=== PATIENT | female | born 1945 | race Caucasian/White ===

== ENCOUNTER 2020-03-04 12:02 | Emergency (ER) | payer MEDICARE, OTHER ==
--- NOTE | 2020-03-04 12:46 | ER Document Report ---
ED Medical Screen (RME) - General Chief Complaint: Other Stated Complaint: WEAKNESS Time Seen by Provider: 03/04/20 12:42 Mode of Arrival: Wheelchair Information source: Patient Notes: 74-year-old female presented to ED for complaint of fatigue weakness exhaustion. She states that she was living in [facility] and was in a correction facility when they kicked her out because her son was living with her. She states she was trying to locate here but did not find a place to stay. She states they have been homeless for the last 5 days and she has been walking around and she is just exhausted and cannot do this on a continued basis. I have greeted and performed a rapid initial assessment of this patient. A comprehensive ED assessment and evaluation of the patient, analysis of test results and completion of medical decision making process will be conducted by an additional ED providers. - Related Data Allergies/Adverse Reactions: clozapine [From Clozaril] Allergy (Verified 03/04/20 12:39) Penicillins Allergy (Verified 03/04/20 12:39) Home Medications: ibuprofen Past Medical History - Social History Chew tobacco use (# tins/day): No Frequency of alcohol use: None Drug Abuse: None Physical Exam - Vital signs Vitals: Temp Pulse Resp BP Pulse Ox 98.8 F 93 20 149/65 H 97 03/04/20 12:27 03/04/20 12:27 03/04/20 12:27 03/04/20 12:27 03/04/20 12:27 Course - Vital Signs Vital signs: Temp Pulse Resp BP Pulse Ox 98.8 F 93 20 149/65 H 97 03/04/20 12:40 03/04/20 12:27 03/04/20 12:27 03/04/20 12:27 03/04/20 12:27
[2020-03-04 13:22] LABS: ABSOLUTE EOSINOPHILS # (AUTO) 0.2 10^3/uL (0.0-0.6); ABSOLUTE LYMPHOCYTES (AUTO) 1.5 10^3/uL (0.5-4.7); ABSOLUTE MONOCYTES (AUTO) 0.6 10^3/uL (0.1-1.4); ABSOLUTE NEUT (AUTO) 5.1 10^3/uL (1.7-8.2); BASOPHILS % (AUTO) 0.4 % (0-2); EOSINOPHILS % (AUTO) 3.3 % (0-6); HEMATOCRIT 39.5 % (36.0-47.0); HEMOGLOBIN 13.3 g/dL (12.0-15.5); LYMPHOCYTES % (AUTO) 19.9 % (13-45); MEAN CORPUSCULAR HEMOGLOBIN 30.6 pg (27.0-33.4); MEAN CORPUSCULAR HGB CONC 33.6 g/dL (32.0-36.0); MEAN CORPUSCULAR VOLUME 91 fl (80-97); MONOCYTES % (AUTO) 7.5 % (3-13); PLATELET COUNT 217 10^3/uL (150-450); RED BLOOD COUNT 4.34 10^6/uL (3.72-5.28); RED CELL DISTRIBUTION WIDTH 14.3 % (11.5-14.0); SEGMENTED NEUTROPHILS % (AUTO) 68.9 % (42-78); TOTAL CELLS COUNTED % (AUTO) 100 %; WHITE BLOOD COUNT 7.5 10^3/uL (4.0-10.5)
[2020-03-04 13:40] LABS: APPEARANCE,URINE SLIGHTLY-CLOUDY; BILIRUBIN,URINE SMALL (NEGATIVE); CALCIUM OXALATE CRYSTALS,URINE FEW /HPF; COLOR,URINE AMBER; GLUCOSE, URINE NEGATIVE (NEGATIVE); KETONES,URINE NEGATIVE (NEGATIVE); LEUKOCYTE ESTERASE,URINE SMALL (NEGATIVE); NITRITE,URINE NEGATIVE (NEGATIVE); PROTEIN,URINE 30 mg/dL (NEGATIVE); URINE SPECIFIC GRAVITY 1.026
[2020-03-04 13:41] LABS: ALBUMIN 4.1 g/dL (3.5-5.0); ALKALINE PHOSPHATASE 143 U/L (38-126); ANION GAP 13 (5-19); ASPARTATE AMINO TRANSFERASE 22 U/L (14-36); BILIRUBIN,DIRECT 0.1 mg/dL (0.0-0.4); BILIRUBIN,TOTAL 0.5 mg/dL (0.2-1.3); BLOOD UREA NITROGEN 11 mg/dL (7-20); CALCIUM 9.5 mg/dL (8.4-10.2); CARBON DIOXIDE 24 mmol/L (22-30); CHLORIDE 100 mmol/L (98-107); GLUCOSE 131 mg/dL (75-110); POTASSIUM 3.9 mmol/L (3.6-5.0); TOTAL PROTEIN 6.7 g/dL (6.3-8.2)
--- NOTE | 2020-03-04 14:18 | RADIOLOGY REPORT (SQ) ---
EXAM DESCRIPTION: L SPINE WHOLE IMAGES COMPLETED DATE/TIME: 03/04/2020 1:49 pm REASON FOR STUDY: Back pain COMPARISON: None. NUMBER OF VIEWS: Five views including obliques. TECHNIQUE: AP, lateral, oblique, and sacral radiographic images acquired of the lumbar spine. LIMITATIONS: None. FINDINGS: MINERALIZATION: Normal. SEGMENTATION: Normal. No transitional anatomy. ALIGNMENT: Scoliosis with concavity toward the right. VERTEBRAE: Maintained height. No fracture or worrisome bone lesion. DISCS: Multilevel disc space narrowing with osteophytes. POSTERIOR ELEMENTS: Pedicles and facets are intact. No pars defect or posterior arch defects. Facet arthropathy is present. HARDWARE: None in the spine. PARASPINAL SOFT TISSUES: Normal. PELVIS: Intact as visualized. No fractures or worrisome bone lesions. SI joints intact. OTHER: No other significant finding. IMPRESSION: SPONDYLOSIS WITHOUT BONE LESION OR FRACTURE. TECHNICAL DOCUMENTATION: JOB ID: [id number] 2010 [employer]- All Rights Reserved Reading location - IP/workstation name: [email or web address]
--- NOTE | 2020-03-04 19:24 | ER Document Report ---
Entered by CHUY JEFF SCRIBE 03/04/20 1830 Acting as scribe for:MARA SHANNON DO ED General - General Chief Complaint: Other Stated Complaint: WEAKNESS Time Seen by Provider: 03/04/20 12:42 Mode of Arrival: Wheelchair Information source: Patient Notes: This homeless 74 year old female patient presents to the emergency department today with complaints of "being tired". Patient came here from [place] by way of [place]. Patient reports that her and her son moved from [place] because "there was nothing happening there" although it was found out that she was kicked out of the place she was living because she had her son living with her. They stayed in [place] for a short time and then decided to move because it "got cold" so they "rented a u-haul and drove south". Patient mentions that she had "a good amount of money" when she left [place] but she has now used all of that. She and her son have been living back behind various locations in the area like a [employer] but she states they "kick her out" when they get there in the morning. She has no complaints other than feeling tired. - Related Data Allergies/Adverse Reactions: clozapine [From Clozaril] Allergy (Verified 03/04/20 12:39) Penicillins Allergy (Verified 03/04/20 12:39) Home Medications: ibuprofen Past Medical History - General Information source: Patient - Social History Smoking Status: Former Smoker Cigarette use (# per day): No Chew tobacco use (# tins/day): No Frequency of alcohol use: None Drug Abuse: None Lives with: Homeless Family History: Reviewed & Not Pertinent Patient has homicidal ideation: No - Medical History Medical History: Negative Surgical Hx: Negative Review of Systems - Review of Systems Constitutional: See HPI, Other - fatigue EENT: No symptoms reported Cardiovascular: No symptoms reported Respiratory: No symptoms reported Gastrointestinal: No symptoms reported Genitourinary: No symptoms reported Female Genitourinary: No symptoms reported Musculoskeletal: No symptoms reported Skin: No symptoms reported Hematologic/Lymphatic: No symptoms reported Neurological/Psychological: No symptoms reported -: Yes All other systems reviewed and negative Physical Exam - Vital signs Vitals: Temp Pulse Resp BP Pulse Ox 98.8 F 93 20 149/65 H 97 03/04/20 12:27 03/04/20 12:27 03/04/20 12:27 03/04/20 12:27 03/04/20 12:27 - Notes Notes: Physical Exam: General: Alert, appears well. HEENT: Normocephalic. Atraumatic. PERRL. Extraocular movements intact. Oroph arynx clear. Neck: Supple. Non-tender. Respiratory: No respiratory distress. Clear and equal breath sounds bilaterally. Cardiovascular: Regular rate and rhythm. Abdominal: Normal Inspection. Non-tender. No distension. Normal Bowel Sounds. Back: No gross abnormalities. Extremities: Moves all four extremities. Upper extremities: Normal inspection. Normal ROM. Lower extremities: Normal inspection. No edema. Normal ROM. Neurological: Normal cognition. AAOx4. Normal speech. Psychological: Normal affect. Normal Mood. Skin: Warm. Dry. Normal color. Course - Vital Signs Vital signs: Temp Pulse Resp BP Pulse Ox 98.3 F 87 18 140/66 H 96 03/04/20 23:00 03/04/20 23:00 03/04/20 23:00 03/04/20 23:00 03/04/20 23:00 - Laboratory Result Diagrams: 03/04/20 12:56 03/04/20 12:56 Laboratory results interpreted by me: 03/04/20 03/04/20 03/04/20 12:56 12:56 12:56 RDW 14.3 H Glucose 131 H Alkaline Phosphatase 143 H Urine Protein 30 H Urine Bilirubin SMALL H Urine Urobilinogen 4.0 H Ur Leukocyte Esterase SMALL H Discharge - Discharge Clinical Impression: Homelessness Osteoarthritis Qualifiers: Osteoarthritis location: unspecified site Osteoarthritis type: unspecified Qualified Code(s): M19.90 - Unspecified osteoarthritis, unspecified site Condition: Stable Disposition: HOME, SELF-CARE Instructions: Family Physicians / Practices Additional Instructions: See your doctor or the referral doctor in follow up. Please return here for chest pain, shortness of breath, thoughts of self harm or other problems or concerns. I personally performed the services described in the documentation, reviewed and edited the documentation which was dictated to the scribe in my presence, and it accurately records my words and actions.
[2020-03-05 11:49] VITALS: BP 163/62
== END 2020-03-05 11:49 | disposition home or self-care (01) ==
LOC: ER 12:02
DX: M19.90 Unspecified osteoarthritis, unspecified site (principal); Z59.0 Homelessness; R53.1 Weakness; Z88.0 Allergy status to penicillin; Z88.8 Allergy status to other drugs, medicaments and biological substances; Z87.891 Personal history of nicotine dependence
CPT/HCPCS: 36415; 72110; 80053; 81001; 85025; 99284

== ENCOUNTER 2020-04-21 12:23 | Emergency (ER) | payer OTHER ==
--- NOTE | 2020-04-21 13:40 | ER Document Report ---
ED Medical Screen (RME) - General Chief Complaint: Arm Problem Stated Complaint: ARM SWELLING Time Seen by Provider: 04/21/20 13:32 Mode of Arrival: Ambulatory Information source: Patient Notes: HPI; 74-year-old female presents to the emergency room with right hand and arm swelling that she noticed today. Noticed a scratch to her right hand 2 days ago but is unsure how she sustained it. Patient is homeless. History of right breast cancer with removal of her lymph nodes to her right arm. Patient is right-handed. She denies any pain at this time. Denies any chest pain, shortness of breath, no difficulty breathing. PE: Alert and oriented x3. Lungs: Clear to auscultation without rales, rhonchi, wheezes. Heart: Regular rate rhythm with a grade 2 out of 6 systolic murmur no rubs. Positive right radial pulse. Right hand with a moderate amount of swelling. Right arm with mild swelling noted. I have greeted and performed a rapid initial assessment of this patient. A comprehensive ED assessment and evaluation of the patient, analysis of test results and completion of the medical decision making process will be conducted by additional ED providers. I have specifically instructed the patient or family members with the patient to immediately return to any nursing staff should anything change in the patient's condition or with their chief complaint. TRAVEL OUTSIDE OF THE [place] IN LAST 30 DAYS: No - Related Data Allergies/Adverse Reactions: clozapine [From Clozaril] Allergy (Verified 03/04/20 12:39) Penicillins Allergy (Verified 03/04/20 12:39) Physical Exam - Vital signs Vitals: Temp Pulse Resp BP Pulse Ox 97.5 F 79 20 145/77 H 98 04/21/20 12:45 04/21/20 12:45 04/21/20 12:45 04/21/20 12:45 04/21/20 12:45 Course - Vital Signs Vital signs: Temp Pulse Resp BP Pulse Ox 97.5 F 79 20 145/77 H 98 04/21/20 12:45 04/21/20 12:45 04/21/20 12:45 04/21/20 12:45 04/21/20 12:45
[2020-04-21 14:30] LABS: ALBUMIN 3.7 g/dL (3.5-5.0); ALKALINE PHOSPHATASE 121 U/L (38-126); ANION GAP 7 (5-19); ASPARTATE AMINO TRANSFERASE 31 U/L (14-36); BILIRUBIN,DIRECT 0.1 mg/dL (0.0-0.4); BILIRUBIN,TOTAL 0.7 mg/dL (0.2-1.3); BLOOD UREA NITROGEN 12 mg/dL (7-20); CALCIUM 9.3 mg/dL (8.4-10.2); CARBON DIOXIDE 24 mmol/L (22-30); CHLORIDE 104 mmol/L (98-107); GLUCOSE 90 mg/dL (75-110); POTASSIUM 3.9 mmol/L (3.6-5.0); TOTAL PROTEIN 6.5 g/dL (6.3-8.2)
--- NOTE | 2020-04-21 16:02 | RADIOLOGY REPORT (SQ) ---
EXAM DESCRIPTION: VENOUS UNILATERAL UPPER IMAGES COMPLETED DATE/TIME: 04/21/2020 3:52 pm REASON FOR STUDY: arm swelling COMPARISON: None. TECHNIQUE: Dynamic and static pedraza scale and color images acquired of the right arm venous system. S elected spectral images acquired with additional compression and augmentation maneuvers. The contrala teral subclavian vein and internal jugular vein were also imaged. Images stored on PACS. LIMITATIONS: None. FINDINGS: INTERNAL JUGULAR VEIN: Normal phasicity, compression, augmentation. No visualized echogeni c material on pedraza scale. No defects on color images. Comparison opposite side normal. SUBCLAVIAN VEIN: Normal compression, augmentation. No visualized echogenic material on pedraza scale. No defects on color images. AXILLARY VEIN: Normal compression, augmentation. No visualized echogenic material on pedraza scale. No d efects on color images. BRACHIAL VEIN: Normal compression, augmentation. No visualized echogenic material on pedraza scale. No d efects on color images. BASILIC VEIN: Normal compression, augmentation. No visualized echogenic material on pedraza scale. No de fects on color images. CEPHALIC VEIN: Normal compression, augmentation. No visualized echogenic material on pedraza scale. No d efects on color images. OTHER: No other significant finding. IMPRESSION: NO EVIDENCE DVT OR SVT RIGHT ARM. TECHNICAL DOCUMENTATION: JOB ID: [id number] 2010 [employer]- All Rights Reserved Reading location - IP/workstation name: [email or web address]
--- NOTE | 2020-04-21 19:06 | ER Document Report ---
ED General - General Chief Complaint: Hand Swelling Stated Complaint: ARM SWELLING Time Seen by Provider: 04/21/20 13:32 Mode of Arrival: Ambulatory TRAVEL OUTSIDE OF THE [place] IN LAST 30 DAYS: No - HPI Notes: Patient is a 74-year-old female presents emergency department for evaluation of swelling in her right hand and forearm. She noticed it today [place] She denies any pain or injury. She states she has a scratch on that hand, but she is really unsure as to how she obtained that. She said no fevers or chills. She denies any chest pain or shortness of breath. The patient does have a history of breast cancer with lymph node disse ction on that side, but this was years ago. Patient further notes that she has been off of her psychiatric medications for some time, she is interested in going back on them. She does have a history of schizophrenia. - Related Data Allergies/Adverse Reactions: clozapine [From Clozaril] Allergy (Verified 03/04/20 12:39) Penicillins Allergy (Verified 03/04/20 12:39) Home Medications: Was on in [place]: Wellbutrin 300mg daily. Abilify 30mg daily. Effexor 275mg daily Past Medical History - General Information source: Patient - Social History Smoking Status: Former Smoker - Smoked for 43 years Chew tobacco use (# tins/day): No Frequency of alcohol use: None Drug Abuse: None Family History: Reviewed & Not Pertinent Patient has homicidal ideation: No - Past Medical History Cardiac Medical History: Reports: Hx Hypercholesterolemia, Hx Hypertension Malignancy Medical History: Reports: Hx Breast Cancer Psychiatric Medical History: Reports: Hx Schizophrenia Review of Systems - Review of Systems Constitutional: No symptoms reported EENT: No symptoms reported Cardiovascular: No symptoms reported Respiratory: No symptoms reported Gastrointestinal: No symptoms reported Genitourinary: No symptoms reported Musculoskeletal: See HPI Skin: See HPI Neurological/Psychological: No symptoms reported Physical Exam - Vital signs Vitals: Temp Pulse Resp BP Pulse Ox 97.5 F 79 20 145/77 H 98 04/21/20 12:45 04/21/20 12:45 04/21/20 12:45 04/21/20 12:45 04/21/20 12:45 - Notes Notes: Vital signs reviewed, please refer to chart. Head is normocephalic, atraumatic. Pupils equal round, reactive to light. Neck is supple without meningismus. Heart is regular rate and rhythm. Lungs are clear to auscultation bilaterally. Abdomen is soft, nontender, normoactive bowel sounds throughout. Extremities without cyanosis, clubbing. Posterior calves are nontender. Peripheral pulses are equal. Skin is warm and dry. Patient is awake, alert, neurological exam is nonfocal. Examination of the right upper extremity yields a limited amount of edema noted to the dorsum of the right hand, overlying the wrist, and the distal forearm. There is really no associated calor. There is some superficial linear abrasions noted, but no surrounding induration or erythema consistent with an infection. Capillary refill is brisk, radial pulse 2+. I do not appreciate any axillary lymphadenopathy. No supraclavicular adenopathy noted. Course - Re-evaluation Re-evalutation: 04/21/20 19:04 Patient presents emergency department for evaluation. She was initially seen through triage. She had a Doppler exam which was found to be negative. She had laboratory investigations ordered. CBC and coagulation panel was to be redrawn is a unacceptable lab specimens. Despite a few attempts, we are unable to obtain specimens, none the patient further refused any lab testing. She will sign out AGAINST MEDICAL ADVICE, she does have some chronic medical conditions and we could be missing a more significant medical condition as a result of not having these lab test. She voiced understanding. Doppler was found to be negative. Because of her smoking history, I am inclined to check for a lung mass or other sign of obstructing lesion, but it is likely that this is edema secondary to her history of lymph node dissection. I explained to the patient that, however, if her symptoms persist she should have a repeat Doppler in 1 to 2 weeks. I also strongly encouraged her to follow-up with mental health professionals. I do not feel comfortable writing new prescriptions for such high doses of SSRIs in this patient with a history of schizophrenia. I believe this would be more apically handled by a psychiatrist. She is given community resources. I will also send her on a [facility]. Awaiting chest x-ray. Again otherwise patient will sign out AGAINST MEDICAL ADVICE. 04/21/20 19:30 I am notified by nursing that the patient wants to leave at this point it AGAINST MEDICAL ADVICE. She has to catch the bus. Her chest x-ray was not yet performed. Again she has still refused the CBC and the coags. She signed out AMA. Of course if she changes her mind she can return. - Vital Signs Vital signs: Temp Pulse Resp BP Pulse Ox 97.8 F 82 20 168/64 H 99 04/21/20 19:32 04/21/20 19:32 04/21/20 19:32 04/21/20 19:32 04/21/20 19:32 - Laboratory Results Result Diagrams: 04/21/20 13:50 04/21/20 13:50 Laboratory Results Interpreted: 04/21/20 13:50 Sodium 135.1 L Critical Laboratory Results Reviewed: No Critical Results - Radiology Results Critical Radiology Results Reviewed: No Critical Results Discharge - Discharge Clinical Impression: Localized swelling of right upper extremity Condition: Stable Disposition: AGAINST MEDICAL ADVICE Instructions: Edema, Peripheral ([facility]), Schizophrenia ([facility]) Additional Instructions: You have elected to leave without the completion of further lab tests as ordered. There is also not an interpretation of your chest x-ray yet performed. This is being done AGAINST MEDICAL ADVICE. A significant or serious diagnosis may be missed secondary to the refusal of this test. If you change your mind regarding this you may return at any time. No clear cause was found for your edema today. It may be secondary to your lymph node dissection in the past. If your symptoms persist, you should have a repeat Doppler to evaluate for blood clot in another 1 to 2 weeks. Otherwise, please use the community resources sheet to follow-up with mental health services. Establish with primary care providers, you have been referred to [facility]. Return to the emergency department with worsening or new concerning symptoms of any sort.
[2020-04-21 19:49] VITALS: BP 168/64
== END 2020-04-21 19:30 | disposition left against medical advice (07) ==
LOC: ER 12:23
DX: R22.31 Localized swelling, mass and lump, right upper limb (principal); E78.00 Pure hypercholesterolemia, unspecified; I10 Essential (primary) hypertension; Z88.0 Allergy status to penicillin; Z85.3 Personal history of malignant neoplasm of breast
CPT/HCPCS: 36415; 80053; 93971; 99284